=== PATIENT | male | born 1970 | race Caucasian/White ===

== ENCOUNTER → 2023-04-08 | Outpatient (CLI) | payer OTHER, SELFPAY ==
--- NOTE | 2023-04-08 11:02 | RAD_ITS ---
STUDY: X-RAY - ABDOMEN/PELVIS REASON FOR EXAM: Male, 52 years old. CALCULUS OF KIDNEY TECHNIQUE: Single AP view of the abdomen / pelvis. COMPARISON: None. FINDINGS: Normal visualized lung bases. There are very numerous irregular calcifications seen in position compatible with the left kidney and measuring as much as 1.2 cm consistent with numerous left renal stones. There is an unremarkable bowel gas pattern. There is no demonstrated free abdominal air. The visualized liver, spleen are grossly normal in size and morphology. Normal soft tissue structures. Normal visualized osseous structures. RAD/Abdomen Single View IMPRESSION: Very numerous irregular calcifications seen in position compatible with the left kidney and measuring as much as 1.2 cm consistent with numerous left renal stones. Electronically Signed: John Fan MD at 18:37 EST ,
[2023-04-23 13:59] LABS: Size 12x8 mm; Source Not Provided
== END | disposition home or self-care (01) ==
PROVIDERS: Referring Provider Urology; Visit Provider Urology
DX: N20.0 Calculus of kidney (principal)
CPT/HCPCS: 74018; 82360